=== PATIENT | male | born 1965 | race American Indian/Alaskan Native ===

== ENCOUNTER 2017-01-28 10:12 | Outpatient (CLI) | payer MEDICAID ==
[2017-01-28 11:19] LABS: Blood Urea Nitrogen 12 mg/dL (9-20)
--- NOTE | 2017-01-28 13:41 | Cat Scan Report ---
CT with and without IV contrast Back pain for several months. Transverse images are obtained from the lower chest to the ischium with coronal and sagittal 2-D reformatted images. Images of the lung basis are unremarkable. Left kidney is smaller than the right. There is an area of hypodensity in the medial left kidney with an adjacent calcification. The abdominal aorta measures 4.1 cm in greatest dimension. The left common iliac artery is enlarged measuring 3.1 cm. Following IV contrast administration images demonstrate a relatively tortuous distal thoracic aorta which may be dilated. The SMA and SATYA arteries are patent. Beginning at the level of the SATYA there is a dissection of the abdominal aorta. The right renal artery arises from the smaller anterior portion in the left renal artery from the larger posterior portion. The dissection continues through the aorta and extends into the left common iliac artery as well as into both the internal and external common iliac arteries. The dissection continues through the common femoral artery ending approximately 1 cm proximal to the bifurcation of the femoral artery. The entire true and false lumens are well opacified with contrast. The abdominal organs are generally unremarkable. The right kidney is unremarkable having a maximum length of 10.4 cm. The left kidney is small. There is a nonenhancing hypodensity involving the mid medial kidney with an adjacent calcification. No evidence of obstructive uropathy or urinary tract calculus. Both kidneys do function. The unenhanced bowel and mesentery appear grossly normal. Comparison is made to an unenhanced examination in December 2014. There is no significant change in the size of the abdominal aorta nor the left common iliac artery. The small abnormal appearing left kidney is essentially unchanged. Impressions: 1. Diffuse abdominal aortic dissection extending into left iliac and common femoral arteries. Based on the size of the abdominal aorta this most likely is a chronic finding although cannot be confirmed due to the absence of contrast on previous scans. 2. Chronically small left kidney. No urinary calculus.
== END 2017-01-28 10:13 | disposition home or self-care (01) ==
LOC: CT 10:12
PROVIDERS: ATTEND Urology
DX: R31.29 Other microscopic hematuria (principal); N28.89 Other specified disorders of kidney and ureter; I11.0 Hypertensive heart disease with heart failure; I50.9 Heart failure, unspecified
CPT/HCPCS: 36415; 74178; 82565; 84520; Q9967

== ENCOUNTER 2017-02-04 06:58 | Day surgery (SDC) | payer MEDICAID ==
[2017-02-04] MEDS ORDERED: NACL 0.9% 500 ML 500 ML IV SCH (08:00)
[2017-02-04 08:11] LABS: Basophils % (Auto) 0.7 % (0.0-1.8); Eosinophils % (Auto) 0.9 % (0.0-4.3); Hematocrit 28.5 % (35.5-45.6); Hemoglobin 8.8 gm/dl (11.8-15.2); Mean Corpuscular HGB Conc 31 % (32-34); Mean Corpuscular Volume 76 fl (84-94); Platelet Count 205 K/mm3 (140-440); Red Blood Count 3.76 M/mm3 (3.65-5.03); White Blood Count 3.2 K/mm3 (4.5-11.0)
[2017-02-04 08:14] LABS: Mean Corpuscular Hemoglobin 24 pg (28-32); Red Cell Distribution Width 23.1 % (13.2-15.2)
[2017-02-04 08:19] LABS: INR 1.35 (0.87-1.13)
[2017-02-04 08:21] LABS: Anion Gap 14 mmol/L; Blood Urea Nitrogen 12 mg/dL (9-20); Calcium 8.4 mg/dL (8.4-10.2); Carbon Dioxide 28 mmol/L (22-30); Chloride 103.4 mmol/L (98-107); Glucose 105 mg/dL (75-100); Potassium 3.8 mmol/L (3.6-5.0); Sodium 142 mmol/L (137-145)
[2017-02-04] MEDS ORDERED: CALAN ONE (09:31)
[2017-02-04] MEDS ORDERED: HEPARIN/NS 5000 UNIT/500ML(CATH LAB) 1,000 ML IR ONE (09:31)
[2017-02-04] MEDS ORDERED: XYLOCAINE 2% INFILTRATI ONE (09:31)
[2017-02-04] MEDS ORDERED: HEPARIN 10,000 UNITS/10 ML ONE ×2 (09:31→09:35)
[2017-02-04] MEDS ORDERED: NITROGLYCERIN SYRINGE 0 ML ONE (09:32)
[2017-02-04] MEDS ORDERED: VERSED ONE (09:33)
[2017-02-04] MEDS ORDERED: SUBLIMAZE ONE (09:34)
--- NOTE | 2017-02-04 11:13 | Cardiac Catherization Report ---
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 Most recent measurement was 5.5. The patient is being followed by Dr. Renan Harris. The procedure is requested in anticipation of aortic root repair. He was taken off of Coumadin and started on Lovenox as a bridge. Risks, benefits, alternatives discussed prior to obtaining informed consent. PROCEDURE IN DETAIL: The patient was brought to the lab associate in a postabsorptive state, prepped and draped in sterile fashion. The patient did not want to go via the radial artery due to right arm issues. We used a right groin approach. A 10 mL of 2% lidocaine used to anesthetize the right groin. A standard 5-Uzbek sheath used to cannulate the right common femoral artery via modified Seldinger technique. All exchanges performed to exchange a J-tip guidewire. JL5 catheter used to engage left main. No dampening or ventricularization. Cineangiography performed in all projections. Next, JR4 catheter used to engage the right coronary. No dampening or ventricularization. Cineangiography performed in multiple projections. Next, we performed fluoroscopy of the aortic valve in the sagittal plane and several other orthogonal views appears to be functioning normally. We did not cross the valve as it was a mechanical valve. There were no complications. FINDINGS: The patient remained in normal sinus rhythm throughout the procedure. DATA: Aortic pressure is 140/70. CORONARY ANATOMY: This is a right dominant system. Right coronary is a large vessel, courses AV groove, distally bifurcates in the posterior descending and posterolateral branch. No significant stenosis noted. The left main is large with mild to moderate ectasia. There is mild to moderate ectasia in the proximal circumflex and proximal LAD. No significant disease identified in either vessel. CONCLUSIONS: No angiographic evidence of significant epicardial coronary disease in the right dominant system. Mild to moderate left main, proximal LAD and proximal circumflex. Ectasia is noted. Normal functioning mechanical aortic valve via fluoroscopy. The patient is clinically stable. He does have [id number] anemia. He is being followed by Dr. Harris at [facility] for anticipated aortic aneurysm repair. He will be restarted on a Lovenox bridge on Coumadin and will have elective aortic surgery. Results of procedure were explained at length to the patient and family. All questions and concerns were addressed. JOB# [id number]
[2017-02-04 13:55] VITALS: BP 143/78
--- NOTE | 2017-02-05 16:09 | Short Stay Summary ---
Short Stay Documentation Date of service: 02/04/17 - History H&P: obtained from office - Allergies and Medications Current Medications: Allergies prednisolone Allergy (Verified 02/04/17 07:38) Unknown Home Medications Medication Instructions Recorded Confirmed Last Taken Type Carvedilol [Coreg] 25 mg PO BID 06/21/13 02/04/17 02/04/17 History Hydralazine HCl [Apresoline TAB] 50 mg PO TID 06/21/13 02/04/17 02/04/17 History 100m Warfarin [Coumadin] 5 mg PO DAILY 06/21/13 02/04/17 01/31/17 History levETIRAcetam [Keppra] 750 mg PO BID 06/21/13 02/04/17 02/04/17 History 1500mg Aspirin EC [Aspirin Enteric Coated 81 mg PO DAILY 02/04/17 02/04/17 02/04/17 History TAB] 81mg AtorvaSTATin [Lipitor] 80 mg PO QHS 02/04/17 02/04/17 02/04/17 History Enoxaparin [Lovenox] 60 mg SQ Q12HR #4 syringe 02/04/17 Unknown Rx Enoxaparin [Lovenox] 60 mg SUB-Q Q12HR 02/04/17 02/04/17 02/03/17 22:00 History NIFEdipine [Nifedipine ER] 60 mg PO BID 02/04/17 02/04/17 02/04/17 History Pantoprazole Sodium [Pantoprazole 40 mg PO DAILY 02/04/17 02/04/17 02/04/17 History Sodium] - Brief post op/procedure progress note Date of procedure: 02/04/17 Pre-op diagnosis: aortic dissection with AVR, abdominal aortic aneurysm, aortic arch aneurysm Post-op diagnosis: same Procedure: LHC - see cath report Anesthesia: local Estimated blood loss: none Pathology: none Condition: stable - Hospital course Hospital course: Pt underwent uncomplicated LHC via right femoral artery per Dr. Mis Knox for pre -operative eval for anticipated aortic root repair. - Disposition Condition at discharge: Stable Disposition: [id number] TO HOME OR SELFCARE - Discharge Diagnoses (1) Aortic aneurysm Status: Chronic Qualifiers: Aortic location: A Presence of rupture: P (2) Aortic dissection Status: Chronic Qualifiers: Aortic location: A (3) H/O aortic valve replacement Status: Chronic (4) Hypertension Status: Chronic Qualifiers: Hypertension type: H Short Stay Discharge Plan Activity: advance as tolerated Wound: open to air, keep clean and dry Additional Instructions: Lovenox 60 mg subcutaneous every 12 hours for 7 doses. Give 1st dose tonight. Resume Coumadin tonight according to previous schedule. Follow up with: CHARI KNOX MD [Staff Physician] - 7 Days Forms: [facility] PCI D/C Instructions Prescriptions: Enoxaparin [Lovenox] 60 mg SQ Q12HR #4 syringe
== END 2017-02-04 14:30 | disposition home or self-care (01) ==
LOC: CATHLABREC 06:58
PROVIDERS: ATTEND Internal Medicine
DX: I71.6 Thoracoabdominal aortic aneurysm, without rupture (principal); I11.0 Hypertensive heart disease with heart failure; I50.20 Unspecified systolic (congestive) heart failure; E78.5 Hyperlipidemia, unspecified; Z88.8 Allergy status to other drugs, medicaments and biological substances; Z79.899 Other long term (current) drug therapy; Z79.01 Long term (current) use of anticoagulants; Z95.2 Presence of prosthetic heart valve
CPT/HCPCS: 36415; 80048; 85025; 85610; 85730; 93005; 93010; 93454; J1644; J2250; J3010; J7040; 93458; Q9967

== ENCOUNTER 2017-06-04 10:42 | Outpatient (CLI) | payer MEDICAID ==
[2017-06-04] MEDS ORDERED: XYLOCAINE TOPICAL 4% TP ONE (11:21)
[2017-06-04] MEDS ORDERED: SILVER NITRATE TP ONE ×2 (12:09→16:15)
== END 2017-06-04 10:43 | disposition home or self-care (01) ==
LOC: WOUND 10:42
PROVIDERS: ATTEND Surgery
DX: T81.89XA Other complications of procedures, not elsewhere classified, initial encounter (principal); I10 Essential (primary) hypertension; Y83.8 Other surgical procedures as the cause of abnormal reaction of the patient, or of later complication, without mention of misadventure at the time of the procedure; Y92.89 Other specified places as the place of occurrence of the external cause
CPT/HCPCS: 11042; G0463

== ENCOUNTER 2017-06-11 10:37 | Outpatient (CLI) | payer MEDICAID ==
[2017-06-11] MEDS ORDERED: XYLOCAINE TOPICAL 2% 5ML ONE (10:55)
[2017-06-11] MEDS ORDERED: XYLOCAINE TOPICAL 2% 5ML TP ONE (11:04)
== END 2017-06-11 10:38 | disposition home or self-care (01) ==
LOC: WOUND 10:37
PROVIDERS: ATTEND Surgery
DX: T81.89XD Other complications of procedures, not elsewhere classified, subsequent encounter (principal); Y83.8 Other surgical procedures as the cause of abnormal reaction of the patient, or of later complication, without mention of misadventure at the time of the procedure; I10 Essential (primary) hypertension